=== PATIENT | male | born 1985 | race Caucasian/White ===

== ENCOUNTER 2016-12-20 16:24 | Inpatient (IN) | payer OTHER ==
[~2016-12-20] VITALS: Ht 180.3 cm; Wt 116.5 kg
[2016-12-20 16:32] VITALS: BP 130/88; PULSE 82; TEMP 97.9
[2016-12-20] MEDS ORDERED: GLUCOPHAGE500 MG/TAB PO (17:01)
[2016-12-20] MEDS ORDERED: INDOCIN 25MG CA25 MG PO (17:01)
[2016-12-20 22:00] VITALS: BP 120/79; PULSE 92; TEMP 97.4
[2016-12-21] VITALS (9 sets, daily range): BP systolic 107–135; BP diastolic 62–86; PULSE 59–98; TEMP 97.3–97.8
[2016-12-21 07:43] LABS: HEMATOCRIT 49.8 % (42.0-52.0); HEMOGLOBIN 16.4 g/dl (13.5-18.0); MEAN CELL VOLUME 92 fl (80.0-100.0); MEAN CORPUSCULAR HEMOGLOBIN 30 pg (27.0-31.0); MEAN CORPUSCULAR HGB CONC 33 g/dl (33.0-37.0); PLATELET COUNT 269 K/mm3 (130-400); RED BLOOD COUNT 5.44 M/mm3 (4.20-5.60); REDCELL DISTRIBUTION WIDTH-CV 13.4 % (11.5-14.5); WHITE BLOOD COUNT 10.8 K/mm3 (4.8-10.8)
[2016-12-21 07:52] LABS: ADD PATHOLOGY DIFF REVIEW NO
[2016-12-21 08:06] LABS: ADJUSTED CALCIUM 9.1 mg/dL (8.4-10.2); ALBUMIN 3.9 gm/dL (3.5-5.0); BILIRUBIN,TOTAL 5.7 mg/dL (0.0-1.0); CREATININE, serum 1.04 mg/dL (0.66-1.25); POTASSIUM 3.9 mmol/L (3.4-5.0); TOTAL PROTEIN 6.9 gm/dL (6.4-8.2)
[2016-12-21 08:09] LABS: BAND 3 % (0-10); BASOPHIL 1 % (0-2); NEUTROPHILS 71 % (42.0-75.2); PLATELET ESTIMATE NORMAL (NORMAL); TOTAL CELLS COUNTED 100
[2016-12-22] VITALS (12 sets, daily range): BP systolic 112–145; BP diastolic 66–88; PULSE 65–115; TEMP 97.9–98.5
[2016-12-23 02:24] VITALS: BP 127/73; PULSE 98; TEMP 98.2
[2016-12-23 05:18] VITALS: BP 124/71; PULSE 96; TEMP 98.1
[2016-12-23 08:58] VITALS: BP 110/74; PULSE 90; TEMP 99.1
== END 2016-12-23 15:08 | disposition home or self-care (01) | DRG 419 ==
LOC: SURG 16:24
PROVIDERS: Surgery
PROC: 0FC98ZZ Extirpation of Matter from Common Bile Duct, Via Natural or Artificial Opening Endoscopic (ICD-10-PCS; 2016-12-21)
PROC: BF131ZZ Fluoroscopy of Gallbladder and Bile Ducts using Low Osmolar Contrast (ICD-10-PCS; 2016-12-22)
PROC: 0FT44ZZ Resection of Gallbladder, Percutaneous Endoscopic Approach (ICD-10-PCS; principal; 2016-12-22 14:00)
DX: K80.66 Calculus of gallbladder and bile duct with acute and chronic cholecystitis without obstruction (principal); I10 Essential (primary) hypertension; E11.9 Type 2 diabetes mellitus without complications; F17.220 Nicotine dependence, chewing tobacco, uncomplicated
CPT/HCPCS: C1769; J1100; J1170; J1885; J1956; J2405; J2550; J2704; J2710; J3010; J7030; Q9967